=== PATIENT | male | born 1955 | race Two or more races ===

== ENCOUNTER → 2024-04-10 | Outpatient (CLI) | payer BC, MEDICARE, SELFPAY ==
--- NOTE | 2024-04-10 13:30 | XR_ITS ---
Examination: CT chest, without intravenous contrast. Sagittal and coronal 2-D reconstructions. Exam date and time: April 10, 2024 1327 hrs. Indications: CT chest October 04, 2023 12 mm pulmonary nodule right lower lobe CTDI:vol (mGy) 13 DLP: (mGycm) 122 Technique: Multiple 3.0 mm axial sections of the chest to been obtained. Bone and lung density settings are obtained. Sagittal and coronal 2-D reconstructions have been obtained. Low dose protocols were performed. One or more of the following dose reduction techniques were used; automated exposure control, adjustment of the mA and/or KV according to patient size, use of iterative reconstruction technique. Findings: No thoracic aortic aneurysm dilatation Pulmonary artery segments are not enlarged No paratracheal tracheobronchial or bronchopulmonary adenopathy Stable 12 mm pulmonary nodule right lower lobe No new pulmonary nodules No pneumonia or pulmonary edema or pleural disease Fatty liver Contracted gallbladder No pancreatic mass Impression: Stable 12 mm pulmonary nodule right lower lobe No new pulmonary nodules
== END | disposition home or self-care (01) ==
LOC: CCTX 12:37
PROVIDERS: PCP Physician Assistant; Referring Provider Physician Assistant; Visit Provider Physician Assistant
DX: R91.1 Solitary pulmonary nodule (principal)
CPT/HCPCS: 71250